=== PATIENT | male | born 1965 | race Caucasian/White ===

== ENCOUNTER 2016-10-23 19:15 | Emergency (ER) | payer OTHER ==
[2016-10-23 19:27] VITALS: TEMP 99.5; O2SAT 95
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
[2016-10-23 20:43] VITALS: BP 122/70; PULSE 88; RESP 18
== END 2016-10-23 20:55 | disposition home or self-care (01) ==
LOC: CED 19:15
DX: S63.502A Unspecified sprain of left wrist, initial encounter (principal); S60.212A Contusion of left wrist, initial encounter; V18.9XXA Unspecified pedal cyclist injured in noncollision transport accident in traffic accident, initial encounter; Y92.410 Unspecified street and highway as the place of occurrence of the external cause; Y99.8 Other external cause status; Y93.89 Activity, other specified
CPT/HCPCS: 73110-PO; L3908